=== PATIENT | female | born 1955 | race Caucasian/White ===

== ENCOUNTER 2018-12-15 07:32 | Day surgery (SDC) | payer BC ==
[~2018-12-15 07:32] MED LIST: Acetaminophen TAB* 325 MG PO PRN; Buffered Lidocaine 1% SYRIN* 1 ML/SYRINGE INTRADERM ONE
[2018-12-15] MEDS ORDERED: fentaNYL* 50 MCG/ML 2 ML VIAL (100 MCG VIAL) ONE (08:22)
[2018-12-15] MEDS ORDERED: Midazolam* 1 MG/ML 2 ML VIAL (2 MG) ONE (08:23)
[2018-12-15 09:46] VITALS: BP 134/52
--- NOTE | 2018-12-15 14:57 | OP ---
DATE OF OPERATION: 12/15/18 - [facility] DATE OF : 53 SURGEON: Julian Causey MD CREDIT REPORTER: None. ANESTHESIA: Topical with intravenous sedation. PRE-OP DIAGNOSIS: Cataract with astigmatism, right eye. POST-OP DIAGNOSIS: Cataract with astigmatism, right eye. OPERATIVE PROCEDURE: Phacoemulsification and cataract extraction with posterior chamber intraocular toric lens implant, right eye. COMPLICATIONS: None. BLOOD LOSS: None. DESCRIPTION OF PROCEDURE: The patient was seen preoperatively in the holding area where a alejandro was made at the 6 o'clock position of the limbus with a marking pen of the right eye while she was in an upright position. The patient was subsequently brought to the operating room and received intravenous sedation as well as a drop of tetracaine into the right eye. The patient was prepped and draped in the usual sterile fashion for ophthalmic surgery and attention was directed to the right eye where a speculum was placed. A paracentesis was created at the 11 o'clock position and 0.1 cc of 1% preservative-free lidocaine was injected into the anterior chamber followed by DisCoVisc. The eye was digitally stabilized while a 2.75-mm keratome was used to create a triplanar clear corneal incision at the 9 o'clock position. A continuous curvilinear capsulorrhexis was created with a cystotome and Utrata forceps. BSS on a cannula was used to hydrodissect the lens from the capsule. Phacoemulsification was performed in a pzwmkd-qda-vawbxzi technique to create 4 fragments, which were removed. Residual cortical material was removed with irrigation and aspiration. The capsular bag was polished. Provisc was used to inflate the capsule and anterior chamber. The intraoperative tonometer was used to check the pressure. The surface of the eye was lubricated. The ORA instrument was employed while the speculum was gently elevated. Three measurements were taken. The lens choice became clear. An [id number] 17 diopter lens was folded and inserted into the capsular bag. It was dialed into the appropriate axial alignment of 82 degrees. The Sinskey hook that was used to dial the lens in place remained in the eye until the paracentesis while irrigation and aspiration was performed to remove viscoelastic from the eye. The Sinskey hook was removed. BSS on a cannula was used to hydrate the corneal stroma and seal the wound. At the end of the case, the pupil was round, the lens was centered and stable in axial line. The eye pressure appeared normal and the wound was watertight. The speculum was removed and topical Maxitrol ointment was placed on the surface of the eye. The eye was closed, patched, and shielded, and the patient was sent to recovery room in stable condition with postop instructions and followup appointment given. [id number]/[facility] #: [id number] PARAMJIT
== END 2018-12-15 09:55 | disposition home or self-care (01) ==
LOC: OREAST 07:32
PROVIDERS: ATTEND Ophthalmology
DX: H25.11 Age-related nuclear cataract, right eye (principal); F41.9 Anxiety disorder, unspecified
CPT/HCPCS: J2250; J3010; V2787

== ENCOUNTER 2018-12-22 06:18 | Day surgery (SDC) | payer BC ==
[2018-12-22] MEDS ORDERED: Midazolam* 1 MG/ML 2 ML VIAL (2 MG) ONE (07:20)
[2018-12-22] MEDS ORDERED: fentaNYL* 50 MCG/ML 2 ML VIAL (100 MCG VIAL) ONE (07:27)
[2018-12-22] MEDS ORDERED: Phenylephrine OPHTH SOL 2.5%* 2 ML ONE (08:00)
[2018-12-22] MEDS ORDERED: Lidocaine 1%* 5 ML VIAL ONE (08:00)
[2018-12-22] MEDS ORDERED: Ketorolac 0.5% OPHTH (NF) 0.5 % 5 ML BTL ONE (08:00)
[2018-12-22] MEDS ORDERED: Neomycin/Polymy/Dex OPHTH.OIN* 3.5 GM ONE (08:00)
[2018-12-22] MEDS ORDERED: Cyclopentolate 1% OPTH.SOL* 2 ML BTL ONE (08:00)
[2018-12-22] MEDS ORDERED: Tetracaine 0.5% OPTH.SOL 4 ML* 1 DROP BTL ONE (08:00)
[2018-12-22] MEDS ORDERED: Tropicamide 1% OPTH.SOL* BTL ONE (08:00)
[2018-12-22 08:11] VITALS: BP 122/55
--- NOTE | 2018-12-22 10:57 | OP ---
OPERATIVE REPORT: DATE OF OPERATION: 12/22/18 DATE OF : 53 SURGEON: Dr. Julian Causey. LUMBER SCALER: None. ANESTHESIA: Topical with intravenous sedation. PRE-OP DIAGNOSIS: Cataract with astigmatism, left eye. POST-OP DIAGNOSIS: Cataract with astigmatism, left eye. OPERATIVE PROCEDURE: Phacoemulsification and cataract extraction with posterior chamber toric intrao cular lens implant, left eye. COMPLICATIONS: None. BLOOD LOSS: None. OPERATIVE FINDINGS: The patient was seen preoperatively in the holding area where she was placed in upright position and a alejandro was made at the 6 o'clock position of the limbus of the left eye. The pa brian was subsequently brought to the operating room and received intravenous sedation and a drop of tetracaine into her left eye. The patient was prepped and draped in the usual sterile fashion for oph thalmic surgery and attention was directed to the left eye where a speculum was placed. A paracentes is was created at the 5 o'clock position and 0.1 cc of 1% preservative- free lidocaine was injected i nto the anterior chamber followed by DisCoVisc. The eye was digitally stabilized while a 2.75-mm ker atome was used to create a triplanar clear corneal incision at the 3 o'clock position. A continuous curvilinear capsulorrhexis was created with a cystotome and Utrata forceps. BSS on a cannula was use d to hydrodissect the lens from the capsule. Phacoemulsification was performed in a gtcayq-sse-mzdtg er technique to create 4 fragments, which were removed. Residual cortical material was removed with irrigation and aspiration. The capsular bag was polished. Provisc was used to to inflate the capsula r bag and the anterior chamber. The pressure of the eye was checked with intraoperative tonometer. Topical balanced saline solution was used to lubricate the surface of the eye. The ORA instrument w as employed to help the guide the lens choice. An [id number] 19 diopter lens was chosen, it was folded a nd placed into the capsular bag. It was rotated to the proper axial alignment of 82 degrees with a Si nskey hook. Irrigation and aspiration was performed to remove viscoelastic from the eye while the hilda s was stabilized using the Sinskey hook. The Sinskey hook was removed. Balanced saline solution was used to hydrate the corneal stroma and seal the wound. At the end of the case, the pupil was round. The lens was centered and stable on the axial line. The eye pressure appeared normal and the wound was water tight. The speculum was removed and topical Maxitrol ointment was placed on the surface o f the eye. The eye was closed, patched and shielded, and the patient was sent to the recovery room i n stable condition with postoperative instructions and follow-up appointment given. [id number]/[facility] #: [id number]
== END 2018-12-22 08:11 | disposition home or self-care (01) ==
LOC: OREAST 06:18
PROVIDERS: ATTEND Ophthalmology
DX: H25.12 Age-related nuclear cataract, left eye (principal); H52.202 Unspecified astigmatism, left eye
CPT/HCPCS: A9270-GY; J2250; J3010; V2787